=== PATIENT | male | born 1930 | race Caucasian/White ===

== ENCOUNTER 2017-08-11 15:22 | Emergency (ER) | payer MEDICARE, OTHER ==
[~2017-08-11] VITALS: Ht 175.3 cm; Wt 72.0 kg
[~2017-08-11 15:22] MED LIST: CARV-50 PO; DIT5T PO; FLO0.4C PO; FURO-150 PO; GABA-338 PO; HYDR-4069 PO; ISOS10TA54 PO; LEVO50TA67 PO; LOSA25TA96 PO; NORCO10T PO
[2017-08-11 15:23] VITALS: BP 142/98
== END 2017-08-11 16:11 | disposition home or self-care (01) ==
LOC: ER 15:23
DX: S51.012A Laceration without foreign body of left elbow, initial encounter (principal); S81.012A Laceration without foreign body, left knee, initial encounter; S01.01XA Laceration without foreign body of scalp, initial encounter; I48.91 Unspecified atrial fibrillation; I11.0 Hypertensive heart disease with heart failure; I50.9 Heart failure, unspecified; G89.29 Other chronic pain; Z90.49 Acquired absence of other specified parts of digestive tract; Z95.1 Presence of aortocoronary bypass graft; Z98.890 Other specified postprocedural states; Z79.899 Other long term (current) drug therapy; W07.XXXA Fall from chair, initial encounter; Y93.89 Activity, other specified; Y92.89 Other specified places as the place of occurrence of the external cause; Y99.8 Other external cause status
CPT/HCPCS: 99284; A6449

== ENCOUNTER 2018-01-16 14:59 | Inpatient (IN) | payer MEDICARE, OTHER ==
[~2018-01-16] VITALS: Ht 175.3 cm; Wt 65.0 kg
[~2018-01-16 14:59] MED LIST changes: +AZI25OT PO; -CARV-50 PO; +CARV3.12 PO; -DIT5T PO; +FURO-149 PO; -FURO-150 PO; -GABA-338 PO; -HYDR-4069 PO; +HYDR-4353 PO; -ISOS10TA54 PO; -LEVO50TA67 PO; +LISI-604 PO; -LOSA25TA96 PO; +MORP30CA17 PO; -NORCO10T PO; +SYN0.088T PO
[2018-01-16] MEDS ORDERED: normal saline 1000ML IV soln IVB ONE (15:30)
[2018-01-16 15:38] LABS: BASOPHILS % (AUTO) 0 % (0-1); EOSINOPHILS % (AUTO) 0 % (0-6); HEMATOCRIT 29.9 % (42.0-52.0); HEMOGLOBIN 9.7 g/dl (14.0-17.9); LYMPHOCYTES # (AUTO) 0.2 X10'3 (1.1-4.8); LYMPHOCYTES % (AUTO) 2.3 % (21-51); MEAN CORPUSCULAR HEMOGLOBIN 31.2 PG (27.0-31.0); MEAN CORPUSCULAR HGB CONC 32.6 % (33.0-36.5); MEAN CORPUSCULAR VOLUME 95.7 FL (78-98); MEAN PLATELET VOLUME 8.8 FL (7.4-10.4); MONOCYTES # (AUTO) 0.4 X10'3 (0-0.9); MONOCYTES % (AUTO) 3.6 % (2-12); NEUTROPHILS # (AUTO) 9.7 X10'3 (1.8-7.7); NEUTROPHILS % (AUTO) 94.1 % (42-75); PLATELET COUNT 139 X10'3 (140-440); RED BLOOD COUNT 3.12 X10'6 (4.70-6.10); RED CELL DISTRIBUTION WIDTH 16.6 % (11.5-14.5); WHITE BLOOD COUNT 10.3 X10'3 (4.5-11.0)
[2018-01-16 15:47] LABS: ALANINE AMINOTRANSFERASE 21 U/L (12-78); ALBUMIN 2.2 G/DL (3.4-5.0); ALBUMIN/GLOBULIN RATIO 0.4 (1.1-1.5); ALKALINE PHOSPHATASE 216 IU/L (46-116); ANION GAP 18 (8-16); ASPARTATE AMINO TRANSFERASE 27 U/L (10-37); BILIRUBIN,TOTAL 1.2 MG/DL (0.1-1.0); BLOOD UREA NITROGEN 149 MG/DL (7-18); BUN/CREATININE RATIO 36.9 (5.4-32.0); CHLORIDE 96 MMOL/L (99-107); CREATININE 4.04 MG/DL (0.60-1.10); GLUCOSE 123 MG/DL (70-104); POTASSIUM 4.4 MMOL/L (3.5-5.1); SODIUM 135 MMOL/L (135-145); TOTAL CARBON DIOXIDE 21.5 MMOL/L (24-32); TOTAL PROTEIN 7.3 G/DL (6.4-8.2); eGFR 14 ML/MIN
[2018-01-16 15:56] LABS: TROPONIN I 0.13 NG/ML (0.0-0.05)
[2018-01-16 16:07] LABS: CLARITY,URINE SLIGHTLY CLOUDY (Clear); COLOR,URINE YELLOW (Yellow); GLUCOSE, URINE NEGATIVE (Neg); KETONES,URINE NEGATIVE (Neg); LEUKOCYTE ESTERASE ,URINE TRACE (Neg); NITRITES, URINE NEGATIVE (Neg); OCCULT BLOOD,URINE NEGATIVE (Neg); PH,URINE 5.5 (4.8-8.0); PROTEIN,URINE NEGATIVE (Neg); UROBILINOGEN,URINE 0.2 E.U/dL (0.2-1.0)
[2018-01-16 16:12] LABS: UA COLLECTION TYPE STRAIGHT CATH
[2018-01-16 16:13] LABS: AMORPHOUS URATES 1+; BACTERIA,URINE NONE SEEN /HPF (Neg); MUCUS STRANDS FEW /LPF (Neg); RBC,URINE NONE SEEN /HPF (0-2); SQUAMOUS EPITHELIAL CELL,UR NONE SEEN /LPF (FEW); WBC,URINE NONE SEEN /HPF (0-4)
[2018-01-16] MEDS ORDERED: LEVO25TA2 PO (16:19)
[2018-01-16] MEDS ORDERED: CefTRIAXone/D5W-Rocephin 1gm 50 ML IV ONE (16:30)
[2018-01-16] MEDS ORDERED: azithromycin/NS 500mg/250ml 250 ML IV ONE (16:30)
[2018-01-16 16:48] LABS: C-REACTIVE PROTEIN 24.02 MG/DL (0.0-0.5)
[2018-01-16] MEDS ORDERED: aspirin 325mg tablet PO ONE (17:00)
[2018-01-16] MEDS ORDERED: ondansetron/PF 4mg/2ml inj IV PRN (17:20)
[2018-01-16] MEDS ORDERED: morphine 2 MG/ML inj. syringe IV PRN (17:20)
[2018-01-16] MEDS ORDERED: acetaminophen 325mg tablet PO PRN (17:20)
[2018-01-16] MEDS ORDERED: magnesium hydroxide 30ml (MOM) UD suspension PO PRN (17:20)
[2018-01-16] MEDS ORDERED: HYDROcodone/acetaminophen 5mg/325mg tablet PO PRN (17:20)
[2018-01-16] MEDS ORDERED: mag hydrox/Alum hydrox/simeth 30ml oral suspension PO PRN (17:20)
[2018-01-16] MEDS: ampicillin inj 1 GM in normal saline 100ml IV soln 100 ML IV SCH ×2 (18:03→19:18)
[2018-01-16 18:55] VITALS: BP 82/58
[2018-01-16] MEDS: furosemide 40mg/4ml inj IV SCH (20:00)
[2018-01-16] MEDS: heparin, porcine 5000 units/ml vial SQ SCH (20:15)
[2018-01-16 20:16] VITALS: BP 87/55
[2018-01-16] MEDS: HYDROcodone/acetaminophen 10/325mg tab PO PRN (20:16)
[2018-01-16] MEDS: morphine ER 30mg tablet PO SCH (20:16)
[2018-01-16] MEDS: tamsulosin 0.4mg capsule PO SCH (20:16)
[2018-01-16] MEDS ORDERED: MORPHINE SULFATE 30 MG PO SCH (21:00)
[2018-01-16 22:00] VITALS: BP 78/55
[2018-01-17] VITALS (7 sets, daily range): BP systolic 80–97; BP diastolic 43–52
[2018-01-17] MEDS ORDERED: vancomycin/NS 1 GM ADD-VANTAGE 250 ML IV PRN (04:25)
[2018-01-17 05:24] LABS: BASOPHILS % (AUTO) 0.1 % (0-1); EOSINOPHILS % (AUTO) 0.1 % (0-6); HEMATOCRIT 27.4 % (42.0-52.0); HEMOGLOBIN 9.1 g/dl (14.0-17.9); LYMPHOCYTES # (AUTO) 0.3 X10'3 (1.1-4.8); LYMPHOCYTES % (AUTO) 2.9 % (21-51); MEAN CORPUSCULAR HEMOGLOBIN 32.2 PG (27.0-31.0); MEAN CORPUSCULAR HGB CONC 33.5 % (33.0-36.5); MEAN CORPUSCULAR VOLUME 96.2 FL (78-98); MEAN PLATELET VOLUME 8.8 FL (7.4-10.4); MONOCYTES # (AUTO) 0.4 X10'3 (0-0.9); MONOCYTES % (AUTO) 3.6 % (2-12); NEUTROPHILS # (AUTO) 9.6 X10'3 (1.8-7.7); NEUTROPHILS % (AUTO) 93.3 % (42-75); PLATELET COUNT 118 X10'3 (140-440); RED BLOOD COUNT 2.84 X10'6 (4.70-6.10); RED CELL DISTRIBUTION WIDTH 15.8 % (11.5-14.5); WHITE BLOOD COUNT 10.3 X10'3 (4.5-11.0)
[2018-01-17 05:57] LABS: ALANINE AMINOTRANSFERASE 17 U/L (12-78); ALBUMIN 1.9 G/DL (3.4-5.0); ALBUMIN/GLOBULIN RATIO 0.4 (1.1-1.5); ALKALINE PHOSPHATASE 172 IU/L (46-116); ANION GAP 17 (8-16); ASPARTATE AMINO TRANSFERASE 25 U/L (10-37); CALCIUM 7.9 MG/DL (8.5-10.1); CHLORIDE 99 MMOL/L (99-107); CREATININE 3.94 MG/DL (0.60-1.10); GLUCOSE 80 MG/DL (70-104); MAGNESIUM 2.1 MG/DL (1.5-2.4); PHOSPHORUS 6.1 MG/DL (2.3-4.5); POTASSIUM 4.1 MMOL/L (3.5-5.1); SODIUM 136 MMOL/L (135-145); TOTAL CARBON DIOXIDE 20.3 MMOL/L (24-32); TOTAL PROTEIN 6.5 G/DL (6.4-8.2); eGFR 15 ML/MIN
[2018-01-17 06:01] LABS: BLOOD UREA NITROGEN 152 MG/DL (7-18); BUN/CREATININE RATIO 38.6 (5.4-32.0)
[2018-01-17] MEDS ORDERED: levoTHYROXINE 25mcg tablet PO SCH (08:00)
[2018-01-17] MEDS: furosemide 40mg/4ml inj IV SCH (08:00)
[2018-01-17] MEDS ORDERED: azithromycin/NS 500mg/250ml 250 ML IV SCH (08:00)
[2018-01-17] MEDS: morphine ER 30mg tablet PO SCH ×3 (08:03→20:22)
[2018-01-17] MEDS: piperacillin-tazo 2.25gm/50ml 50 ML IV SCH ×3 (08:03→23:32)
[2018-01-17] MEDS: heparin, porcine 5000 units/ml vial SQ SCH ×2 (08:04→20:23)
[2018-01-17 08:54] LABS: CLARITY,URINE CLOUDY (Clear); COLOR,URINE YELLOW (Yellow); GLUCOSE, URINE NEGATIVE (Neg); KETONES,URINE NEGATIVE (Neg); LEUKOCYTE ESTERASE ,URINE TRACE (Neg); NITRITES, URINE NEGATIVE (Neg); OCCULT BLOOD,URINE LARGE (Neg); PROTEIN,URINE TRACE mg/dl (Neg); UROBILINOGEN,URINE 0.2 E.U/dL (0.2-1.0)
[2018-01-17 09:00] LABS: UA COLLECTION TYPE FOLEY CATH
[2018-01-17] MEDS ORDERED: vancomycin/NS 1 GM ADD-VANTAGE 250 ML X 1 DOSE IV ONE (09:00)
[2018-01-17 09:04] LABS: AMORPHOUS URATES 3+; BACTERIA,URINE FEW /HPF (Neg); COARSE GRANULAR CAST 0-3 /LPF (NEGATIVE); MUCUS STRANDS NONE SEEN /LPF (Neg); SQUAMOUS EPITHELIAL CELL,UR FEW /LPF (FEW); TRANSITIONAL EPI CELLS,URINE FEW /HPF; WBC,URINE 0-4 /HPF (0-4)
[2018-01-17 09:24] LABS: SODIUM,URINE RANDOM < 15 MEQ/L
[2018-01-17] MEDS ORDERED: levoTHYROXINE sod inj. 100mcg/5 ml vial IV ONE (09:30)
[2018-01-17] MEDS ORDERED: normal saline 1000ml 1,000 ML IV ONE (09:35)
[2018-01-17] MEDS ORDERED: magnesium Cl slow-release 64mg tablet PO PRN (09:45)
[2018-01-17] MEDS ORDERED: potassium Cl 20 mEq SR tablet PO PRN ×2 (09:45)
[2018-01-17] MEDS ORDERED: magnesium 4gm in 100ml NS 100 ML IV PRN (09:45)
[2018-01-17] MEDS ORDERED: potassium Cl 40MEQ/NS 500ml 500 ML IV PRN ×2 (09:45)
[2018-01-17 10:08] LABS: LACTATE DEHYDROGENASE 217 U/L (85-227)
[2018-01-17 10:40] LABS: UA EOSINOPHILS NO EOS /HPF
[2018-01-17] MEDS: normal saline 1000ml 1,000 ML IV SCH ×2 (14:17→22:35)
[2018-01-17] MEDS ORDERED: NUT.TX.IMP.RENAL FXN,LAC-REDUC (Nepro) 237 ML VANILLA PO SCH (18:00)
[2018-01-17] MEDS: furosemide 20 MG/2 ML vial IV SCH (20:00)
[2018-01-17] MEDS: lactobacillus rhamnosus 10,000 MMU CELLS/CAPSULE PO SCH (20:22)
[2018-01-17] MEDS: tamsulosin 0.4mg capsule PO SCH (20:22)
[2018-01-18 02:00] VITALS: BP 84/46
[2018-01-18] MEDS ORDERED: LIDOcaine 2% 10ml TOPICAL JELLY (Urojet) MM ONE (02:55)
[2018-01-18] MEDS ORDERED: VANCOMYCIN LEVEL IV SCH (03:00)
[2018-01-18] MEDS: HYDROcodone/acetaminophen 10/325mg tab PO PRN ×2 (03:30→19:44)
[2018-01-18 04:48] LABS: BASOPHILS % (AUTO) 0 % (0-1); EOSINOPHILS # (AUTO) 0.2 X10'3 (0-0.9); EOSINOPHILS % (AUTO) 1.9 % (0-6); HEMATOCRIT 26.3 % (42.0-52.0); HEMOGLOBIN 8.7 g/dl (14.0-17.9); LYMPHOCYTES # (AUTO) 0.4 X10'3 (1.1-4.8); LYMPHOCYTES % (AUTO) 3.3 % (21-51); MEAN CORPUSCULAR HEMOGLOBIN 31.6 PG (27.0-31.0); MEAN CORPUSCULAR HGB CONC 33.2 % (33.0-36.5); MEAN PLATELET VOLUME 8.9 FL (7.4-10.4); MONOCYTES # (AUTO) 0.4 X10'3 (0-0.9); MONOCYTES % (AUTO) 3.4 % (2-12); NEUTROPHILS # (AUTO) 10.6 X10'3 (1.8-7.7); NEUTROPHILS % (AUTO) 91.4 % (42-75); PLATELET COUNT 115 X10'3 (140-440); RED BLOOD COUNT 2.76 X10'6 (4.70-6.10); RED CELL DISTRIBUTION WIDTH 16.2 % (11.5-14.5); WHITE BLOOD COUNT 11.6 X10'3 (4.5-11.0)
[2018-01-18 05:01] LABS: ALANINE AMINOTRANSFERASE 21 U/L (12-78); ALBUMIN 1.7 G/DL (3.4-5.0); ALBUMIN/GLOBULIN RATIO 0.4 (1.1-1.5); ALKALINE PHOSPHATASE 226 IU/L (46-116); ANION GAP 19 (8-16); ASPARTATE AMINO TRANSFERASE 31 U/L (10-37); CALCIUM 7.7 MG/DL (8.5-10.1); CHLORIDE 98 MMOL/L (99-107); CREATININE 4.09 MG/DL (0.60-1.10); GLUCOSE 102 MG/DL (70-104); MAGNESIUM 2.2 MG/DL (1.5-2.4); PHOSPHORUS 6.2 MG/DL (2.3-4.5); POTASSIUM 4.6 MMOL/L (3.5-5.1); SODIUM 134 MMOL/L (135-145); TOTAL CARBON DIOXIDE 17.4 MMOL/L (24-32); TOTAL PROTEIN 6.2 G/DL (6.4-8.2); VANCOMYCIN,TROUGH 10.3 UG/ML (6.0-14.0); eGFR 14 ML/MIN
[2018-01-18 05:09] LABS: BLOOD UREA NITROGEN 166 MG/DL (7-18); BUN/CREATININE RATIO 40.6 (5.4-32.0)
[2018-01-18 06:00] VITALS: BP 90/51
[2018-01-18 06:26] LABS: CREATININE 4.21 MG/DL (0.60-1.10)
[2018-01-18] MEDS: normal saline 1000ml 1,000 ML IV SCH (07:14)
[2018-01-18] MEDS ORDERED: vancomycin/NS 1 GM ADD-VANTAGE 250 ML IV ONE (07:30)
[2018-01-18] MEDS ORDERED: vancomycin/NS 1 GM ADD-VANTAGE 250 ML IV PRN (08:00)
[2018-01-18] MEDS: heparin, porcine 5000 units/ml vial SQ SCH ×2 (08:00→20:52)
[2018-01-18] MEDS: levoTHYROXINE 100mcg tablet PO SCH (08:00)
[2018-01-18] MEDS: piperacillin-tazo 2.25gm/50ml 50 ML IV SCH ×2 (08:00→16:00)
[2018-01-18] MEDS: lactobacillus rhamnosus 10,000 MMU CELLS/CAPSULE PO SCH ×2 (08:00→20:00)
[2018-01-18] MEDS: furosemide 20 MG/2 ML vial IV SCH ×2 (08:00→19:52)
[2018-01-18] MEDS: morphine ER 30mg tablet PO SCH ×3 (09:09→20:51)
[2018-01-18 10:00] VITALS: BP 95/47
[2018-01-18] MEDS: sodium bicarbonate (8.4%) inj. 150 MEQ in dextrose 5%-water 1,000 ML IV SCH (13:26)
[2018-01-18 18:00] VITALS: BP 101/53
[2018-01-18 19:52] VITALS: BP 87/53
[2018-01-18] MEDS: tamsulosin 0.4mg capsule PO SCH (20:51)
[2018-01-18 22:00] VITALS: BP 103/57
[2018-01-19] MEDS: sodium bicarbonate (8.4%) inj. 150 MEQ in dextrose 5%-water 1,000 ML IV SCH ×2 (00:04→11:10)
[2018-01-19] MEDS: piperacillin-tazo 2.25gm/50ml 50 ML IV SCH ×3 (00:05→16:00)
[2018-01-19 06:00] VITALS: BP 95/60
[2018-01-19 06:42] LABS: BASOPHILS % (AUTO) 0 % (0-1); EOSINOPHILS # (AUTO) 0.2 X10'3 (0-0.9); EOSINOPHILS % (AUTO) 1.7 % (0-6); HEMATOCRIT 24.7 % (42.0-52.0); HEMOGLOBIN 8.3 g/dl (14.0-17.9); LYMPHOCYTES # (AUTO) 0.4 X10'3 (1.1-4.8); LYMPHOCYTES % (AUTO) 3.8 % (21-51); MEAN CORPUSCULAR HEMOGLOBIN 31.6 PG (27.0-31.0); MEAN CORPUSCULAR HGB CONC 33.5 % (33.0-36.5); MEAN CORPUSCULAR VOLUME 94.3 FL (78-98); MEAN PLATELET VOLUME 9.3 FL (7.4-10.4); MONOCYTES # (AUTO) 0.5 X10'3 (0-0.9); MONOCYTES % (AUTO) 4.3 % (2-12); NEUTROPHILS % (AUTO) 90.2 % (42-75); PLATELET COUNT 115 X10'3 (140-440); RED BLOOD COUNT 2.61 X10'6 (4.70-6.10); RED CELL DISTRIBUTION WIDTH 15.5 % (11.5-14.5)
[2018-01-19 07:02] LABS: ALANINE AMINOTRANSFERASE 15 U/L (12-78); ALBUMIN 1.7 G/DL (3.4-5.0); ALBUMIN/GLOBULIN RATIO 0.4 (1.1-1.5); ALKALINE PHOSPHATASE 219 IU/L (46-116); ANION GAP 15 (8-16); ASPARTATE AMINO TRANSFERASE 25 U/L (10-37); BILIRUBIN,TOTAL 1.1 MG/DL (0.1-1.0); CALCIUM 7.7 MG/DL (8.5-10.1); CHLORIDE 98 MMOL/L (99-107); CREATININE 4.53 MG/DL (0.60-1.10); GLUCOSE 108 MG/DL (70-104); PHOSPHORUS 6.4 MG/DL (2.3-4.5); POTASSIUM 4.7 MMOL/L (3.5-5.1); SODIUM 136 MMOL/L (135-145); TOTAL PROTEIN 6.1 G/DL (6.4-8.2); eGFR 12 ML/MIN
[2018-01-19 07:07] LABS: BLOOD UREA NITROGEN 165 MG/DL (7-18)
[2018-01-19 07:09] LABS: BUN/CREATININE RATIO 36.4 (5.4-32.0)
[2018-01-19 08:00] VITALS: BP 99/47
[2018-01-19] MEDS: lactobacillus rhamnosus 10,000 MMU CELLS/CAPSULE PO SCH (08:00)
[2018-01-19] MEDS: furosemide 20 MG/2 ML vial IV SCH (08:00)
[2018-01-19] MEDS: levoTHYROXINE 100mcg tablet PO SCH (08:00)
[2018-01-19] MEDS: heparin, porcine 5000 units/ml vial SQ SCH (08:00)
[2018-01-19] MEDS: morphine ER 30mg tablet PO SCH ×3 (08:58→20:54)
[2018-01-19 11:10] VITALS: BP 96/65
[2018-01-19] MEDS: HYDROcodone/acetaminophen 10/325mg tab PO PRN (13:10)
[2018-01-19] MEDS ORDERED: LORazepam 2 mg/ml vial IV PRN (16:25)
[2018-01-19] MEDS: morphine 2 MG/ML inj. syringe IV PRN (17:10)
[2018-01-19 22:00] VITALS: BP 96/38
[2018-01-20] MEDS: morphine ER 30mg tablet PO SCH ×3 (09:06→21:06)
[2018-01-20 10:00] VITALS: BP 88/50
[2018-01-20] MEDS: morphine 2 MG/ML inj. syringe IV PRN (10:57)
[2018-01-20 22:00] VITALS: BP 91/50
[2018-01-21] MEDS: morphine ER 30mg tablet PO SCH ×4 (08:00→20:48)
[2018-01-21 10:10] VITALS: BP 97/44
[2018-01-21] MEDS: morphine 2 MG/ML inj. syringe IV PRN ×4 (10:35→23:35)
[2018-01-21 22:00] VITALS: BP 106/56
[2018-01-22] MEDS: morphine 2 MG/ML inj. syringe IV PRN ×3 (04:20→21:58)
[2018-01-22] MEDS: morphine ER 30mg tablet PO SCH (07:03)
[2018-01-22 10:00] VITALS: BP 110/65
[2018-01-22] MEDS: morphine 10mg/0.5ml (conc. morphine) oral syringe PO SCH ×4 (12:15→23:56)
[2018-01-22 22:00] VITALS: BP 112/62
[2018-01-23] MEDS: morphine 2 MG/ML inj. syringe IV PRN (01:56)
[2018-01-23] MEDS: morphine 10mg/0.5ml (conc. morphine) oral syringe PO SCH ×4 (04:00→16:03)
[2018-01-23 18:00] VITALS: BP 91/62
== END 2018-01-23 22:15 | disposition expired | DRG 871 ==
LOC: ER 14:59 → ED HOLD 17:18 → ORTHO 4S 18:35
PROVIDERS: ADMIT Internal Medicine; ATTEND Family Medicine
DX: A40.1 Sepsis due to streptococcus, group B (principal); E43 Unspecified severe protein-calorie malnutrition; J69.0 Pneumonitis due to inhalation of food and vomit; N17.0 Acute kidney failure with tubular necrosis; N18.6 End stage renal disease; R65.21 Severe sepsis with septic shock; E87.2 Acidosis; I13.2 Hypertensive heart and chronic kidney disease with heart failure and with stage 5 chronic kidney disease, or end stage renal disease; M00.9 Pyogenic arthritis, unspecified; E05.90 Thyrotoxicosis, unspecified without thyrotoxic crisis or storm; I50.9 Heart failure, unspecified; D64.9 Anemia, unspecified; E03.9 Hypothyroidism, unspecified; H91.90 Unspecified hearing loss, unspecified ear; I25.10 Atherosclerotic heart disease of native coronary artery without angina pectoris; I48.91 Unspecified atrial fibrillation; R09.02 Hypoxemia; N40.0 Benign prostatic hyperplasia without lower urinary tract symptoms; I46.9 Cardiac arrest, cause unspecified; Z96.651 Presence of right artificial knee joint; G89.29 Other chronic pain; M25.511 Pain in right shoulder; M54.9 Dorsalgia, unspecified; R74.8 Abnormal levels of other serum enzymes; Z51.5 Encounter for palliative care; Z66 Do not resuscitate; Z90.49 Acquired absence of other specified parts of digestive tract; Z95.1 Presence of aortocoronary bypass graft; Z79.899 Other long term (current) drug therapy; Z68.21 Body mass index [BMI] 21.0-21.9, adult; Z23 Encounter for immunization
CPT/HCPCS: 36415; 71045; 71250; 73100; 73630; 80053; 80202; 81001; 82570; 82575; 83605; 83615; 83735; 83880; 84100; 84145; 84156; 84300; 84443; 84484; 85025; 85651; 86140; 87040; 87070; 87077; 87088; 87186; 87207; 92616; 93005; 93306; 93971; 96365; 99285; J0290; J0456; J0696; J1644; J1940; J2270; J2543; J3370; J7030